=== PATIENT | female | born 1955 | race African-American/Black ===

== ENCOUNTER 2020-05-26 04:33 | Day surgery (SDC) | payer BC ==
[2020-05-25 16:25] VITALS: BMI 31.9
[2020-05-26 06:20] LABS: URINE APPEARANCE CLEAR; URINE BILIRUBIN NEGATIVE (NEGATIVE); URINE COLOR YELLOW; URINE GLUCOSE (UA) NEGATIVE (NEGATIVE); URINE KETONE NEGATIVE (NEGATIVE); URINE LEUK ESTERASE NEGATIVE (NEGATIVE); URINE NITRITE NEGATIVE (NEGATIVE); URINE PROTEIN NEGATIVE (NEGATIVE); URINE UROBILINOGEN 0.2 mg/dL (0.2-1.0)
[2020-05-26] MEDS ORDERED: ROPIVACAINE HCL 0.5% 30ML VIAL ONE (07:22)
[2020-05-26] MEDS ORDERED: MIDAZOLAM HCL 2 MG/2 ML SINGLE DOSE VIAL ONE ×2 (07:23)
[2020-05-26] MEDS ORDERED: ceFAZolin SODIUM 1 GM VIAL ONE ×2 (07:39→10:03)
[2020-05-26] MEDS ORDERED: DEXAMETHASONE SOD PHOSPHATE 4 MG/1 ML VIAL ONE (07:39)
[2020-05-26] MEDS ORDERED: PROPOFOL 20 ML ONE ×3 (07:39)
[2020-05-26] MEDS ORDERED: SUCCINYLCHOLINE CHLORIDE 200 MG/10 ML SYRINGE ONE (07:39)
[2020-05-26] MEDS ORDERED: LIDOCAINE HCL/PF 2% SDV 5ML VIAL ONE ×2 (07:39→10:03)
[2020-05-26] MEDS ORDERED: ceFAZolin 2 GRAM PREMIX BAG IVPB ONE (08:19)
[2020-05-26] MEDS ORDERED: EPHEDRINE SULFATE/0.9% NACL/PF 50 MG/10 ML SYRINGE NR ONE (08:42)
[2020-05-26] MEDS ORDERED: ONDANSETRON 4 MG/2 ML VIAL ONE (10:33)
[2020-05-26] MEDS ORDERED: ONDANSETRON 4 MG/2 ML VIAL IVPUSH ONE (10:37)
[2020-05-26] MEDS ORDERED: ONDANSETRON 4 MG/2 ML VIAL IVPUSH PRN (11:09)
[2020-05-26] MEDS ORDERED: oxyCODONE HCL 5 MG TABLET PO PRN ×2 (11:09)
[2020-05-26] MEDS ORDERED: LACTATED RINGERS SOLUTION 1,000 ML IV SCH (11:15)
[2020-05-26 11:24] VITALS: TEMP 96.9
[2020-05-26 13:44] VITALS: BP 124/75; PULSE 88
== END 2020-05-26 13:00 | disposition home or self-care (01) ==
LOC: JASU-SURG 04:33
PROVIDERS: ATTEND Orthopaedic Surgery
PROC: 0LQ10ZZ Repair Right Shoulder Tendon, Open Approach (ICD-10-PCS; 2020-05-26)
PROC: 0RNJ4ZZ Release Right Shoulder Joint, Percutaneous Endoscopic Approach (ICD-10-PCS; principal; 2020-05-26 08:00)
PROC: 0PB94ZZ Excision of Right Clavicle, Percutaneous Endoscopic Approach (ICD-10-PCS; 2020-05-26 08:00)
DX: M75.101 Unspecified rotator cuff tear or rupture of right shoulder, not specified as traumatic (principal); M75.41 Impingement syndrome of right shoulder; M75.01 Adhesive capsulitis of right shoulder; M24.011 Loose body in right shoulder
CPT/HCPCS: 81003; 88304-TC; 94760

== ENCOUNTER 2021-02-17 04:46 | Day surgery (SDC) | payer BC ==
[2021-02-15 14:57] VITALS: BMI 31.9
[2021-02-17 10:57] VITALS: TEMP 97.6
[2021-02-17 12:30] VITALS: BP 110/56; PULSE 54
== END 2021-02-17 11:55 | disposition home or self-care (01) ==
LOC: JASU-ENDO 04:46
PROVIDERS: ATTEND Internal Medicine Gastroenterology
PROC: 0DBL8ZX Excision of Transverse Colon, Via Natural or Artificial Opening Endoscopic, Diagnostic (ICD-10-PCS; 2021-02-17)
PROC: 0DBN8ZX Excision of Sigmoid Colon, Via Natural or Artificial Opening Endoscopic, Diagnostic (ICD-10-PCS; principal; 2021-02-17 10:31)
DX: Z12.11 Encounter for screening for malignant neoplasm of colon (principal); Z86.010 Personal history of colon polyps; K57.30 Diverticulosis of large intestine without perforation or abscess without bleeding; D12.5 Benign neoplasm of sigmoid colon; D12.3 Benign neoplasm of transverse colon; K64.8 Other hemorrhoids
CPT/HCPCS: 88305-TC

== ENCOUNTER 2021-10-30 14:53 | Emergency (ER) | payer BC ==
[2021-10-30 15:17] VITALS: BP 129/68; PULSE 83; TEMP 98.1; BMI 30.9
[2021-10-30] MEDS ORDERED: KETOROLAC TROMETHAMINE 30 MG/1 ML VIAL IM ONE (16:45)
[2021-10-30] MEDS ORDERED: LIDOCAINE 5% TOPICAL PATCH TP ONE (16:46)
[2021-10-30] MEDS ORDERED: KETOROLAC TROMETHAMINE 30 MG/1 ML VIAL ONE (16:53)
[2021-10-30] MEDS ORDERED: LIDOCAINE 5% TOPICAL PATCH ONE (16:53)
[2021-10-30] MEDS ORDERED: LIDOCAINE PATCH REMOVAL MC SCH (22:00)
== END 2021-10-30 17:52 | disposition home or self-care (01) ==
LOC: JERFT 14:53 → JER 14:53 → JERFT 17:52
PROC: 3E023GC Introduction of Other Therapeutic Substance into Muscle, Percutaneous Approach (ICD-10-PCS; principal; 2021-10-30)
DX: M25.551 Pain in right hip (principal); M25.561 Pain in right knee
CPT/HCPCS: 72170-TC-FY; 73502-TC-RT-FY; 73562-TC-RT-FY; 99284-25

== ENCOUNTER 2024-04-12 15:05 | Emergency (ER) | payer BC ==
[2024-04-12 15:11] VITALS: BP 130/83; PULSE 92; RESP 16; TEMP 99.1; BMI 31.1
[2024-04-12] MEDS ORDERED: ACETAMINOPHEN INJECTION 100 ML ONE (15:48)
[2024-04-12] MEDS: SODIUM CHLORIDE 0.9% 500 ML INFUS.BAG IV ONE (16:19)
[2024-04-12] MEDS: ACETAMINOPHEN 1000 MG/100 ML BAG IVPB ONE (16:19)
[2024-04-12 16:30] LABS: EOS % 0.6 % (0-4.5); HEMATOCRIT 39.8 % (32.4-45.2); HEMOGLOBIN 12.9 GM/dL (10.7-15.3); LYMPH % 28.4 % (8-40); MCH 22.2 pg (25.7-33.7); MCHC 32.4 g/dl (32.0-36.0); MEAN CELL VOLUME 68.5 fl (80-96); MEAN PLT VOLUME 10.1 fl (7.5-11.1); MONO % 7.7 % (3.8-10.2); NEUT % 62.3 % (42.8-82.8); PLATELET COUNT 233 10^3/uL (134-434); RBC 5.81 M/mm3 (3.60-5.2); RDW 16.3 % (11.6-15.6); WHITE BLOOD COUNT 8.3 K/mm3 (4.0-10.0)
[2024-04-12 16:57] LABS: POTASSIUM 5.5 mmol/L (3.5-5.1)
[2024-04-12 16:59] LABS: ALBUMIN 3.6 g/dl (3.4-5.0); CALCIUM 9.4 mg/dL (8.5-10.1)
[2024-04-12 17:00] LABS: BLOOD UREA NITROGEN 9.2 mg/dL (7-18)
[2024-04-12 17:02] LABS: CREATININE 0.8 mg/dL (0.55-1.3)
[2024-04-12 17:04] LABS: BILIRUBIN,TOTAL 0.7 mg/dL (0.2-1)
[2024-04-12 17:53] LABS: HIV INTERPRETATION NEGATIVE (NEGATIVE)
[2024-04-12 18:08] LABS: PH,URINE 5.5 (5.0-8.0); URINE APPEARANCE CLEAR; URINE BILIRUBIN NEGATIVE (NEGATIVE); URINE COLOR YELLOW; URINE GLUCOSE (UA) NEGATIVE (NEGATIVE); URINE KETONE TRACE (NEGATIVE); URINE LEUK ESTERASE NEGATIVE (NEGATIVE); URINE NITRITE NEGATIVE (NEGATIVE); URINE PROTEIN NEGATIVE (NEGATIVE)
== END 2024-04-12 18:54 | disposition home or self-care (01) ==
LOC: JER 15:05
PROC: 3E033NZ Introduction of Analgesics, Hypnotics, Sedatives into Peripheral Vein, Percutaneous Approach (ICD-10-PCS; principal; 2024-04-12)
DX: K57.32 Diverticulitis of large intestine without perforation or abscess without bleeding (principal); R10.84 Generalized abdominal pain; K59.00 Constipation, unspecified
CPT/HCPCS: 36415; 74177-TC; 80053; 81003; 83690; 85025; 86803; 87086; 87389; 99285-25; J0131; Q9967

== ENCOUNTER 2024-05-10 13:56 | Inpatient (IN) | payer OTHER, BC ==
[2024-05-10] MEDS ORDERED: MECLIZINE HCL 25 MG TABLET (FP) PO ONE (14:41)
[2024-05-10] MEDS ORDERED: MECLIZINE HCL 25 MG TABLET (FP) ONE (14:58)
[2024-05-10] MEDS ORDERED: FAMOTIDINE 20 MG TABLET ONE (14:58)
[2024-05-10] MEDS ORDERED: ACETAMINOPHEN INJECTION 100 ML ONE (15:05)
[2024-05-10] MEDS ORDERED: ACETAMINOPHEN 500 MG TABLET (FP) ONE (15:07)
[2024-05-10] MEDS: FAMOTIDINE 20 MG TABLET PO ONE (15:39)
[2024-05-10] MEDS: MECLIZINE HCL 25 MG TABLET (FP) PO ONE (15:39)
[2024-05-10] MEDS: ACETAMINOPHEN 500 MG TABLET (FP) PO ONE (15:39)
[2024-05-10 15:51] LABS: BASO % 0.5 % (0-2.0); EOS % 0.4 % (0-4.5); HEMATOCRIT 40.8 % (32.4-45.2); LYMPH % 22.7 % (8-40); MCH 22.2 pg (25.7-33.7); MCHC 31.8 g/dl (32.0-36.0); MEAN PLT VOLUME 10.1 fl (7.5-11.1); MONO % 5.3 % (3.8-10.2); NEUT % 71.1 % (42.8-82.8); PLATELET COUNT 193 10^3/uL (134-434); RBC 5.83 M/mm3 (3.60-5.2); RDW 16.4 % (11.6-15.6); WHITE BLOOD COUNT 5.6 K/mm3 (4.0-10.0)
[2024-05-10 15:58] LABS: POTASSIUM 4.2 mmol/L (3.5-5.1)
[2024-05-10 16:02] LABS: ALBUMIN 3.6 g/dl (3.4-5.0); CALCIUM 9.4 mg/dL (8.5-10.1)
[2024-05-10 16:05] LABS: CREATININE 0.8 mg/dL (0.55-1.3)
[2024-05-10 16:07] LABS: BILIRUBIN,TOTAL 0.4 mg/dL (0.2-1); TOT PROT 7.8 g/dl (6.4-8.2)
[2024-05-10] MEDS ORDERED: diphenhydrAMINE HCL 25 MG CAPSULE (FP) PO ONE (18:37)
[2024-05-10] MEDS ORDERED: METOCLOPRAMIDE HCL INJECTION 10 MG/2 ML VIAL ONE (18:38)
[2024-05-10] MEDS: METOCLOPRAMIDE HCL INJECTION 10 MG/2 ML VIAL IVPB ONE (18:51)
[2024-05-10] MEDS: diphenhydrAMINE HCL 25 MG CAPSULE (FP) PO ONE (18:51)
[2024-05-10] MEDS ORDERED: ASPIRIN 81 MG CHEWABLE TABLETS ONE (20:25)
[2024-05-10] MEDS: ASPIRIN 81 MG CHEWABLE TABLETS PO ONE (21:08)
[2024-05-11 02:14] VITALS: BMI 29.9
[2024-05-11 07:31] LABS: BASO % 0.4 % (0-2.0); EOS % 2.4 % (0-4.5); HEMATOCRIT 37.9 % (32.4-45.2); HEMOGLOBIN 12.3 GM/dL (10.7-15.3); LYMPH % 30.5 % (8-40); MCH 22.5 pg (25.7-33.7); MCHC 32.4 g/dl (32.0-36.0); MEAN CELL VOLUME 69.3 fl (80-96); MEAN PLT VOLUME 10.1 fl (7.5-11.1); MONO % 8.7 % (3.8-10.2); PLATELET COUNT 167 10^3/uL (134-434); RBC 5.47 M/mm3 (3.60-5.2); RDW 16.7 % (11.6-15.6); WHITE BLOOD COUNT 5.6 K/mm3 (4.0-10.0)
[2024-05-11 07:53] LABS: POTASSIUM 4.2 mmol/L (3.5-5.1)
[2024-05-11 07:58] LABS: CALCIUM 8.6 mg/dL (8.5-10.1)
[2024-05-11 07:59] LABS: BLOOD UREA NITROGEN 10.6 mg/dL (7-18)
[2024-05-11 08:02] LABS: CREATININE 1.1 mg/dL (0.55-1.3); PHOSPHOROUS 3.3 mg/dL (2.5-4.9)
[2024-05-11 08:13] LABS: INR 0.98 (0.83-1.09); PROTHROMBIN TIME (PATIENT) 11.3 SEC (9.7-13.0)
[2024-05-11 08:16] LABS: ACTIVATED PTT 28.8 SECONDS (25.2-36.5)
[2024-05-11] MEDS: MECLIZINE HCL 25 MG TABLET (FP) PO PRN (13:23)
[2024-05-11] MEDS: DOCUSATE SODIUM 100 MG CAPSULE (FP) PO PRN (13:23)
[2024-05-12] MEDS: ACETAMINOPHEN 325 MG TABLET (FP) PO PRN (06:59)
[2024-05-12] MEDS: MAGNESIUM HYDROX 2400MG/30ML ORAL SUSPENSION 30 ML CUP PO ONE (11:30)
[2024-05-12] MEDS: CARBAMIDE PEROXIDE 6.5% OTIC 15 ML BOTTLE AU SCH (20:09)
[2024-05-13 08:05] VITALS: BP 138/87; PULSE 61; RESP 16; TEMP 98.2
[2024-05-13 08:28] LABS: HEMATOCRIT 38.7 % (32.4-45.2); HEMOGLOBIN 12.5 GM/dL (10.7-15.3); MCH 22.3 pg (25.7-33.7); MCHC 32.2 g/dl (32.0-36.0); MEAN CELL VOLUME 69.3 fl (80-96); MEAN PLT VOLUME 10.1 fl (7.5-11.1); PLATELET COUNT 174 10^3/uL (134-434); RBC 5.59 M/mm3 (3.60-5.2); RDW 16.1 % (11.6-15.6); WHITE BLOOD COUNT 4.4 K/mm3 (4.0-10.0)
[2024-05-13 08:30] LABS: POTASSIUM 4.4 mmol/L (3.5-5.1)
[2024-05-13 08:40] LABS: ALBUMIN 3.4 g/dl (3.4-5.0); BLOOD UREA NITROGEN 10.6 mg/dL (7-18); MAGNESIUM 2.3 mg/dL (1.8-2.4)
[2024-05-13 08:43] LABS: CREATININE 0.8 mg/dL (0.55-1.3); PHOSPHOROUS 3.4 mg/dL (2.5-4.9)
[2024-05-13 08:45] LABS: BILIRUBIN,TOTAL 0.4 mg/dL (0.2-1)
== END 2024-05-13 12:49 | disposition home or self-care (01) | DRG 156 ==
LOC: JER 13:56 → JERBED 20:28 → J4W 23:02 → OBSVTOIN 05-12 11:22
PROVIDERS: ADMIT Internal Medicine; ATTEND Internal Medicine
DX: H61.23 Impacted cerumen, bilateral (principal); H81.393 Other peripheral vertigo, bilateral; I10 Essential (primary) hypertension; R11.10 Vomiting, unspecified; K59.00 Constipation, unspecified
CPT/HCPCS: 36415; 70450-TC; 71045-TC-FY; 76705-TC; 80048; 80053; 82607; 82728; 82746; 83540; 83550; 83605; 83735; 84100; 84439; 84443; 84466; 84484; 85025; 85027; 85610; 85730; 93005; 93010; 97116-GP; 97162-GP; 99283-25; G0378